=== PATIENT | female | born 1980 | race Caucasian/White ===

== ENCOUNTER → 2016-06-21 | Outpatient (CLI) | payer OTHER ==
[~2016-06-21] MED LIST: ADDE30TA PO; BUPR8SUB SL; BUSP10TA PO; CLON0.1T PO; HYDR10TA65 PO; LAMO100 PO; LORA-373 PO; METR500T10 PO; ORTH0.35 PO; PREN1CHW3 PO; SUBO2MIS SL; TIRO75CA
[2016-06-21 12:00] LABS: BASOPHIL % 0.2 % (0.0-2.0); EOSINOPHIL % 0.1 % (0.0-4.0); HEMATOCRIT 35.9 % (35.0-46.0); HEMO FLAGS DIFF FINAL; LYMPH % 25.2 % (9.0-44.0); LYMPHOCYTE # 1.9 TH/MM3 (1.0-4.8); MEAN CELL VOLUME 83.1 FL (80.0-100.0); MEAN CORPUSCULAR HEMOGLOBIN 28.1 PG (27.0-34.0); MEAN CORPUSCULAR HGB CONC 33.8 % (32.0-36.0); NEUT % 67.5 % (16.0-70.0); PLATELET COUNT 164 TH/MM3 (150-450); RED BLOOD COUNT 4.32 MIL/MM3 (4.00-5.30); WHITE BLOOD COUNT 7.5 TH/MM3 (4.0-11.0)
[2016-06-21 12:18] LABS: BACTERIA, URINE RARE /hpf; BLOOD, URINE NEG (NEG); GLUCOSE,URINE NEG (NEG); KETONE, URINE NEG (NEG); MUCUS URINE FEW /lpf (OCC); NITRITE,URINE NEG (NEG); SQUAMOUS EPITHELIAL CELL URINE 1 /hpf (0-5); URINE COLOR LIGHT-YELLOW (YELLW/STRAW)
== END ==
LOC: CPRE 10:44
PROVIDERS: ATTEND Obstetrics & Gynecology
DX: Z01.812 Encounter for preprocedural laboratory examination (principal); O34.30 Maternal care for cervical incompetence, unspecified trimester
CPT/HCPCS: 36415; 81001; 85025

== ENCOUNTER → 2016-06-23 | Day surgery (SDC) | payer OTHER ==
--- NOTE | 2016-06-22 18:42 | MH ---
cc: HIWOT FOSS DATE OF ADMISSION 06/23/2016 DATE OF PROCEDURE June 23, 2016 PREOPERATIVE DIAGNOSIS Second trimester with a recent LEEP procedure and thinning cervix, scheduled for Bradford cerclage. HISTORY OF PRESENT ILLNESS The patient is a 36-year-old single white female 1, para 0 with LMP 03/29 and EDC 01/03/2017, currently at 12 weeks and 2/7 days. Cervical length is less than three. She had a LEEP for MORRIS III in January of 2016. She has opioid use disorder and takes Subutex 4 mg b.i.d. tablet. She has bipolar disorder type 2 and she takes Lamictal 50 mg b.i.d. She has some anxiety and takes BuSpar 10 mg t.i.d. She has advanced maternal age. She has a known endocrinopathy multiple with thyroid, prolactin issues and she is watched carefully by endocrinology. She currently does not drink or use illicit drugs. She does smoke. She works at the [employer] in [place]. Her blood type is O+. Her hemoglobin was 12.5. Her Pap smear shows HPV and atypical cells. She is immune to Sami measles and chickenpox. Her cultures were otherwise negative. Her drug screen was fine. Her thyroid test was normal. Hep C was negative. Her prolactin was 127. PHYSICAL EXAMINATION VITAL SIGNS: She weighs 141 pounds. Her blood pressure is 120/68. Her urine was negative. NECK: She had no thyromegaly. LUNGS: Clear. HEART: Rate and rhythm are regular. ABDOMEN: Benign. She has no hepatosplenomegaly, no CVA tenderness. PELVIC: Cervix is nulliparous. It is somewhat short. It is firm. It measures less than 3 cm. On ultrasound she has a viable . EXTREMITIES: Are unremarkable. IMPRESSION Second trimester with a history of a recent LEEP procedure at extreme risk for cervical incompetence and second trimester loss. Secondary diagnosis of opioid use disorder. She is on Subutex and compliant and doing well. Her bipolar disorder is being addressed with Lamictal and BuSpar. Risks, benefits, expectations and procedure have been discussed in detail with Lana. She is scheduled for tomorrow morning. She has signed consents. MD KOSTA Lawrence/KK /5:43 PM /6:21 PM
[~2016-06-23] VITALS: Ht 165.1 cm; Wt 63.0 kg
[~2016-06-23] MED LIST changes: -ADDE30TA PO; +CLINDAMYCIN 600 MG/NS 100 ML IV SCH; +CLINDAMYCIN PHOS 600 MG/4 ML VIAL ONE; -CLON0.1T PO; +DO NOT ADM ANY ANTICOAGULANT DRUGS XX PRN; -HYDR10TA65 PO; +IBUPROFEN 600 MG TAB PO ONE; +INSULIN HUMAN REGULAR 1,000 UNITS/10 ML VIAL SQ PRN; +LACTATED RINGER'S 1000 ML IV SCH; -LORA-373 PO; +MEPERIDINE HCL 50 MG/ML VIAL IM ONE; +METOPROLOL TARTRATE 25 MG TAB PO PRN; -METR500T10 PO; +ONDANSETRON HCL 4 MG/2 ML VIAL IV PUSH ONE; +ONDANSETRON HCL 4 MG/2 ML VIAL IV PUSH PRN; -ORTH0.35 PO; +SODIUM CHLORID 0.9% 500 ML IV SCH; +SODIUM CHLORIDE 0.9% INJ 100 ML ONE; -SUBO2MIS SL; -TIRO75CA; +ceFAZolin 2 GM PREMIX 50 ML IV SCH
[2016-06-23 07:17] VITALS: BP 118/81; PULSE 75; RESP 18; TEMP 98.1; O2SAT 99
--- NOTE | 2016-06-23 10:56 | MP ---
cc: FATOUMATA FOSS DATE OF SURGERY: 06/23/2016 DATE OF : 1980 PREOPERATIVE DIAGNOSIS Incompetent cervix due to recent LEEP procedure at 12 weeks. POSTOPERATIVE DIAGNOSIS Incompetent cervix due to recent LEEP procedure at 12 weeks. PROCEDURE Bradford cerclage x2. ANESTHESIA Spinal. SURGEON Dr. Foss. HADOOP ADMINISTRATOR Henrique, MS III FINDINGS Cervix was closed but is already thinned. There was maybe external length of about 2.5 cm. This was enough to allow placement of two cerclages without difficulty. heart tones were heard both before and afterwards. BLOOD LOSS Blood loss was minimal. COUNTS Sponge, instrument, needle count were correct. CONDITION She went to the procedure room stable. PROCEDURE The patient was identified as Lana Beckwith. Her permit was reviewed in the holding area. She was taken to the operating room, given clindamycin, prepped and draped in the usual sterile fashion in dorsal lithotomy position after receiving spinal analgesia. A time-out was performed with all in attendance. Examination under anesthesia was performed. She was prepped as appropriate and then a #1 Prolene with a large CT1 needle was used. The cervix was grasped gently and this was placed from 2 to 10, 10 to 8, 8 to 4 and 4 to 2. A second stitch was then placed from 12 to 9, 9 to 6, 6 to 3, 3 to 12. Both were left with very long square knots. Bleeding was negligibl. Lana talked through the procedure and tolerated it well. She will be followed closely in the office and will be going home when stable. Fatoumata Foss MD PPC/TLL /10:07 AM /10:39 AM
[2016-06-23 13:30] VITALS: BP 118/70; PULSE 70; RESP 16; TEMP 98.5; O2SAT 100
== END | disposition home or self-care (01) ==
LOC: HSDC 06:36
PROVIDERS: ATTEND Obstetrics & Gynecology
DX: O34.31 Maternal care for cervical incompetence, first trimester (principal); Z3A.12 12 weeks gestation of pregnancy
CPT/HCPCS: 00948; 59320; J2405; J7120

== ENCOUNTER → 2016-10-06 | Outpatient (CLI) | payer OTHER ==
[~2016-10-06] MED LIST changes: +BETAMETHASONE SOD PHOS/ACETATE SUSP 30 MG/5 ML VIAL IM SCH; -CLINDAMYCIN 600 MG/NS 100 ML IV SCH; -CLINDAMYCIN PHOS 600 MG/4 ML VIAL ONE; -DO NOT ADM ANY ANTICOAGULANT DRUGS XX PRN; -IBUPROFEN 600 MG TAB PO ONE; -INSULIN HUMAN REGULAR 1,000 UNITS/10 ML VIAL SQ PRN; -LACTATED RINGER'S 1000 ML IV SCH; -MEPERIDINE HCL 50 MG/ML VIAL IM ONE; -METOPROLOL TARTRATE 25 MG TAB PO PRN; -ONDANSETRON HCL 4 MG/2 ML VIAL IV PUSH ONE; -ONDANSETRON HCL 4 MG/2 ML VIAL IV PUSH PRN; -SODIUM CHLORID 0.9% 500 ML IV SCH; -SODIUM CHLORIDE 0.9% INJ 100 ML ONE; -ceFAZolin 2 GM PREMIX 50 ML IV SCH
== END ==
LOC: HOBED 15:21
PROVIDERS: ATTEND Obstetrics & Gynecology
DX: O60.03 Preterm labor without delivery, third trimester (principal)
CPT/HCPCS: 96372; J0702

== ENCOUNTER → 2016-10-07 | Outpatient (CLI) | payer OTHER ==
[~2016-10-07] MED LIST changes: +BETAMETHASONE SOD PHOS/ACETATE SUSP 30 MG/5 ML VIAL IM ONE; -BETAMETHASONE SOD PHOS/ACETATE SUSP 30 MG/5 ML VIAL IM SCH
== END ==
LOC: HOBED 15:01
PROVIDERS: ATTEND Obstetrics & Gynecology
DX: O60.03 Preterm labor without delivery, third trimester (principal); Z3A.00 Weeks of gestation of pregnancy not specified
CPT/HCPCS: 96372; J0702

== ENCOUNTER 2017-01-05 18:08 | Inpatient (IN) | payer OTHER ==
[2017-01-05] VITALS (65 sets, daily range): BP systolic 111–136; BP diastolic 77–91; PULSE 67–95; RESP 16–18; TEMP 98.1–98.7
[~2017-01-05] VITALS: Ht 165.1 cm; Wt 72.3 kg
[~2017-01-05 18:08] MED LIST changes: -BETAMETHASONE SOD PHOS/ACETATE SUSP 30 MG/5 ML VIAL IM ONE
[2017-01-05] MEDS ORDERED: LIDOCAINE HCL 1% 50 ML VIAL INFIL PRN (18:15)
[2017-01-05] MEDS ORDERED: SODIUM CHLORID 0.9% 500 ML INJ 500 ML IV PRN (18:15)
[2017-01-05] MEDS ORDERED: OXYTOCIN 30 UNITS-500ML PREMIX 500 ML IV SCH (18:15)
[2017-01-05] MEDS ORDERED: OXYTOCIN 30 UNITS-500ML PREMIX 500 ML IV ONE (18:15)
[2017-01-05] MEDS ORDERED: LACTATED RINGER'S 1000 ML INJ 1,000 ML IV PRN (18:15)
[2017-01-05] MEDS ORDERED: MINERAL OIL 10 ML VIAL TOPICAL PRN (18:15)
[2017-01-05] MEDS ORDERED: LIDOCAINE HCL 1% 50 ML VIAL I-DERMAL PRN (18:15)
[2017-01-05] MEDS ORDERED: CITRIC ACID-SODIUM CITRATE LIQ 30 ML UDC PO SCH (18:15)
[2017-01-05] MEDS ORDERED: SODIUM CHLOR 0.9% 1000 ML INJ 1,000 ML IV PRN (18:35)
[2017-01-05] MEDS ORDERED: FOLI400T PO (18:56)
[2017-01-05] MEDS ORDERED: LEVO50TA4 PO (18:57)
[2017-01-05 19:42] LABS: AUTOMATED NEUTROPHIL # 6.9 TH/MM3 (1.8-7.7); BASOPHIL % 0.3 % (0.0-2.0); EOSINOPHIL # 0.1 TH/MM3 (0-0.4); EOSINOPHIL % 0.7 % (0.0-4.0); HEMATOCRIT 34.7 % (35.0-46.0); HEMO FLAGS DIFF FINAL; LYMPH % 23.4 % (9.0-44.0); LYMPHOCYTE # 2.4 TH/MM3 (1.0-4.8); MEAN CELL VOLUME 81.8 FL (80.0-100.0); MONO % 7.7 % (0.0-8.0); NEUT % 67.9 % (16.0-70.0); PLATELET COUNT 147 TH/MM3 (150-450); RED BLOOD COUNT 4.25 MIL/MM3 (4.00-5.30); RED CELL DISTRIBUTION WIDTH 12.9 % (11.6-17.2); WHITE BLOOD COUNT 10.1 TH/MM3 (4.0-11.0)
[2017-01-05 19:43] LABS: BACTERIA, URINE RARE /hpf; BLOOD, URINE TRACE (NEG); COMMENT (UR) CULT NOT INDICATED; CULTURE IF INDICATED CULT NOT INDICATED; GLUCOSE,URINE NEG (NEG); KETONE, URINE NEG (NEG); MUCUS URINE FEW /lpf (OCC); NITRITE,URINE NEG (NEG); PH, URINE 6.5 (5.0-8.5); SQUAMOUS EPITHELIAL CELL URINE 1 /hpf (0-5); URINE COLOR YELLOW (YELLW/STRAW)
[2017-01-05] MEDS: LACTATED RINGER'S 1000 ML INJ 1,000 ML IV SCH ×2 (22:17→22:18)
[2017-01-05] MEDS: MISOPROSTOL 25 MCG SUPP VAGINAL PRN (22:18)
[2017-01-06] VITALS (119 sets, daily range): BP systolic 99–138; BP diastolic 55–102; PULSE 42–144; RESP 16–20; TEMP 97.7–100.9
[2017-01-06] MEDS: MISOPROSTOL 25 MCG SUPP VAGINAL PRN (02:09)
[2017-01-06] MEDS: BUPRENORPHINE HCL 8 MG SUBLINGUAL TAB SL SCH ×3 (05:43→19:43)
[2017-01-06] MEDS: LEVOTHYROXINE SODIUM 50 MCG TAB PO SCH (05:44)
[2017-01-06] MEDS: LACTATED RINGER'S 1000 ML INJ 1,000 ML IV SCH ×2 (05:45→13:06)
[2017-01-06] MEDS ORDERED: fentaNYL 2MCG-BUPIV 0.125% INJ 100 ML ONE ×2 (06:22→13:10)
[2017-01-06] MEDS ORDERED: ePHEDrine/NS 25 MG/5 ML SYR ONE (06:22)
--- NOTE | 2017-01-06 08:30 | HHI.HP ---
HPI Chief Complaint 40 2/7 weeks P0 marginal mandel score opioid use disorder depression Date Seen: Jan 05, 2017 Time Seen: 12:00 Travel History International Travel<30 Days: No Contact w/Intl Traveler<30Days: No Known Affected Area: No History of Present Illness HPI 36 yo swf at 40 2/7 first seen at 6 weeks and seen weekly throughout . Hx of LEEPs x2 and then cerclage placed for prophylaxsis at 12 weeks. Removed at 38 weeks. Cervix scarred and only began to dilate this week. Admitted for induction. Hx of opioid addiction and maintained on subutex 8 mg TID. Hx of anxiety and depression treated with buspar and lamictal respectively. Has been compliant with all visits and regular UDS reassuring. No GDM, HTN or PTL. No leaking, bleeding. No UCs good movement Weeks Gestation: 40 Para: 0 : 1 History Past Medical History Narrative Medical hypothyroid history of elevated prolactin Allergies-Medications (Allergen,Severity, Reaction): Coded Allergies: acetaminophen (Unverified Allergy, Severe, nausea, 01/05/17) penicillin G (Unverified Allergy, Severe, nausea gi distress fever blisters, 01/05/17) propoxyphene (Unverified Allergy, Severe, nausea, 01/05/17) Home Meds Reported Medications Levothyroxine (Levothyroxine) 50 Mcg Tab, 50 MCG PO DAILY for Thyroid, #30 TAB 0 Refills 01/05/17 Folic Acid (Folic Acid) 0.4 Mg Tab, 1 MG PO DAILY for Nutritional Supplement, TAB 0 Refills 01/05/17 Lamotrigine (Lamictal) 100 Mg Tab, 50 MG PO BID for Control Seizures, #30 TAB 0 Refills 06/23/16 W/ Vit T4-G1-C60-Chol (Prena1 Chew 1.4 mg) 1 Chw Chw, 1 CHEW PO DAILY 06/21/16 Buspirone (Buspirone) 10 Mg Tab, 10 MG PO BID Y for ANXIETY, TAB 0 Refills 06/21/16 Buprenorphine (Buprenorphine) 8 Mg Subl, 4 MG SL BID, TAB.SL 06/21/16 Physical Exam Vital Signs Date Time Temp Pulse Resp B/P (MAP) Pulse Ox O2 Delivery O2 Flow Rate FiO2 01/06/17 07:00 80 01/06/17 06:57 86 118/71 (87) 01/06/17 06:55 88 01/06/17 06:55 86 01/06/17 06:54 91 120/75 (90) 01/06/17 06:51 98 124/70 (88) 01/06/17 06:50 82 01/06/17 06:50 86 01/06/17 06:48 87 127/75 (92) 01/06/17 06:46 90 134/65 (88) 01/06/17 06:45 86 01/06/17 06:45 88 01/06/17 06:43 110 131/86 (101) 01/06/17 06:41 90 138/80 (99) 01/06/17 06:40 93 01/06/17 06:40 95 127/91 (103) 01/06/17 06:35 86 01/06/17 06:30 75 01/06/17 06:30 74 01/06/17 06:25 70 01/06/17 06:20 74 01/06/17 06:15 137 01/06/17 05:50 78 01/06/17 05:45 144 01/06/17 05:32 98.9 75 18 130/85 (100) 01/06/17 05:30 87 01/06/17 05:10 78 01/06/17 05:05 59 01/06/17 04:45 75 01/06/17 04:40 55 01/06/17 04:25 85 01/06/17 04:15 76 01/06/17 04:10 68 01/06/17 04:05 42 01/06/17 04:00 79 01/06/17 03:55 64 01/06/17 03:50 63 01/06/17 03:47 97.9 18 01/06/17 03:45 60 01/06/17 03:35 72 01/06/17 03:30 65 01/06/17 03:25 74 01/06/17 03:20 69 01/06/17 03:15 75 01/06/17 03:10 72 01/06/17 03:05 72 01/06/17 03:00 60 01/06/17 02:55 61 01/06/17 02:50 70 01/06/17 02:45 64 01/06/17 02:40 70 01/06/17 02:35 60 01/06/17 02:30 64 01/06/17 02:25 71 01/06/17 02:20 71 01/06/17 02:15 69 01/06/17 02:15 16 01/06/17 02:15 98.4 01/06/17 02:10 76 01/06/17 02:08 69 137/85 (102) 01/06/17 02:00 74 01/06/17 01:55 71 01/06/17 01:50 62 01/06/17 01:45 67 01/06/17 01:40 69 01/06/17 01:35 64 01/06/17 01:30 75 01/06/17 01:25 69 01/06/17 01:20 74 01/06/17 01:15 65 01/06/17 01:10 80 01/06/17 01:05 65 01/06/17 01:00 66 01/06/17 00:55 70 01/06/17 00:50 65 01/06/17 00:47 98.3 63 16 124/70 (88) 01/06/17 00:40 78 01/06/17 00:35 87 01/06/17 00:30 73 01/06/17 00:25 84 01/06/17 00:20 79 01/06/17 00:15 69 01/06/17 00:10 79 01/06/17 00:05 72 01/06/17 00:00 71 01/05/17 23:55 80 01/05/17 23:50 81 01/05/17 23:45 71 01/05/17 23:40 81 01/05/17 23:35 79 01/05/17 23:30 84 01/05/17 23:25 80 01/05/17 23:20 83 01/05/17 23:15 78 01/05/17 23:10 81 01/05/17 23:05 80 01/05/17 23:00 73 01/05/17 22:55 90 01/05/17 22:50 88 01/05/17 22:45 84 01/05/17 22:40 84 01/05/17 22:35 74 01/05/17 22:30 83 01/05/17 22:25 93 01/05/17 22:20 80 01/05/17 22:15 87 111/79 (90) 01/05/17 22:15 98.7 16 01/05/17 22:15 80 01/05/17 22:10 83 01/05/17 22:05 91 01/05/17 22:00 80 01/05/17 21:55 83 01/05/17 21:50 94 01/05/17 21:45 95 01/05/17 21:40 84 01/05/17 21:35 83 01/05/17 21:30 89 01/05/17 21:25 84 01/05/17 21:20 71 01/05/17 21:15 71 01/05/17 21:05 84 01/05/17 21:00 79 01/05/17 20:55 75 01/05/17 20:50 81 01/05/17 20:45 71 01/05/17 20:40 86 01/05/17 20:35 79 01/05/17 20:30 81 01/05/17 20:25 77 01/05/17 20:20 79 01/05/17 20:15 82 01/05/17 20:11 98.1 68 18 129/77 (94) 01/05/17 20:10 67 01/05/17 20:05 69 01/05/17 20:00 68 01/05/17 19:55 71 01/05/17 19:50 73 01/05/17 19:45 78 01/05/17 19:40 78 01/05/17 19:35 77 01/05/17 19:30 77 01/05/17 19:25 75 01/05/17 19:20 72 01/05/17 19:15 76 01/05/17 19:10 79 01/05/17 19:05 77 01/05/17 19:00 75 01/05/17 18:55 80 01/05/17 18:50 80 01/05/17 18:45 85 01/05/17 18:30 18 01/05/17 18:30 98.5 01/05/17 18:26 74 136/91 (106) Narrative GENERAL: Well-nourished, well-developed patient. SKIN: Warm and dry. HEAD: Normocephalic and atraumatic. EYES: No scleral icterus. No injection or drainage. ENT: No nasal drainage noted. Mucous membranes pink. Airway patent. NECK: Supple, trachea midline. No JVD. CARDIOVASCULAR: Regular rate and rhythm without murmurs, gallops, or rubs. RESPIRATORY: Breath sounds equal bilaterally. No accessory muscle use. BREASTS: Bilateral exam showed no masses , no retractions, no nipple discharge. ABDOMEN/GI: Abdomen soft, non-tender, bowel sounds present, no rebound, no guarding Gravid to [-] weeks size 38 cm 2/80/-1 pelvis clinically adequate EXTREMITIES: No cyanosis or edema. BACK: Nontender without obvious deformity. No CVA tenderness. NEUROLOGICAL: Awake and alert. Motor and sensory grossly within normal limits. Five out of 5 muscle strength in all muscle groups. Normal speech. Caprini VTE Risk Assessment Caprini VTE Risk Assessment: No/Low Risk (score <= 1) Caprini Risk Assessment Model Point Value = 1 Point Value = 2 Point Value = 3 Point Value = 5 Age 41-60 Minor surgery BMI > 25 kg/m2 Swollen legs Varicose veins or History of unexplained or recurrent spontaneous Oral contraceptives or hormone replacement Sepsis (< 1 month) Serious lung disease, including pneumonia (< 1 month) Abnormal pulmonary function Acute myocardial infarction Congestive heart failure (< 1 month) History of inflammatory bowel disease Medical patient at bed rest Age 61-74 Arthroscopic surgery Major open surgery (> 45 min) Laparoscopic surgery (> 45 min) Malignancy Confined to bed (> 72 hours) Immobilizing plaster cast Central venous access Age >= 75 History of VTE Family history of VTE Factor V Leiden Prothrombin [id number] Lupus anticoagulant Anticardiolipin antibodies Elevated serum homocysteine Heparin-induced thrombocytopenia Other congenital or acquired thrombophilia Stroke (< 1 month) Elective arthroplasty Hip, pelvis, or leg fracture Acute spinal cord injury (< 1 month) Prophylaxis Regimen Total Risk Factor Score Risk Level Prophylaxis Regimen 0-1 Low Early ambulation 2 Moderate Order ONE of the following: *Sequential Compression Device (SCD) *Heparin 5000 units SQ BID 3-4 Higher Order ONE of the following medications: *Heparin 5000 units SQ TID *Enoxaparin/Lovenox 40 mg SQ daily (WT < 150 kg, CrCl > 30 mL/min) *Enoxaparin/Lovenox 30 mg SQ daily (WT < 150 kg, CrCl > 10-29 mL/min) *Enoxaparin/Lovenox 30 mg SQ BID (WT < 150 kg, CrCl > 30 mL/min) AND/OR *Sequential Compression Device (SCD) 5 or more Highest Order ONE of the following medications: *Heparin 5000 units SQ TID (Preferred with Epidurals) *Enoxaparin/Lovenox 40 mg SQ daily (WT < 150 kg, CrCl > 30 mL/min) *Enoxaparin/Lovenox 30 mg SQ daily (WT < 150 kg, CrCl > 10-29 mL/min) *Enoxaparin/Lovenox 30 mg SQ BID (WT < 150 kg, CrCl > 30 mL/min) AND *Sequential Compression Device (SCD) Data Data Orders Orders Admit To Inpatient (01/05/17 ) Code Status (01/05/17 18:15) Vital Signs (Adult) .Per protocol (01/05/17 18:15) Heart (01/05/17 18:15) Amnioinfusion (01/05/17 18:15) Urinary Catheter Management .ONCE (01/05/17 18:15) Lactated Ringer's 1000 Ml Inj (Lr 1000 M (01/05/17 18:15) Lactated Ringer's 1000 Ml Inj (Lr 1000 M (01/05/17 18:15) Sodium Chlorid 0.9% 500 Ml Inj (Ns 500 M (01/05/17 18:15) Sodium Chlor 0.9% 1000 Ml Inj (Ns 1000 M (01/05/17 18:35) Lidocaine 1% Inj (50 Ml) (Xylocaine 1% I (01/05/17 18:15) Citric Acid-Sodium Citrate Liq (Bicitra (01/05/17 18:15) Fentanyl Inj (Fentanyl Inj) (01/05/17 18:15) Fentanyl Inj (Fentanyl Inj) (01/05/17 18:15) Complete Blood Count With Diff (01/05/17 18:15) Hold Clot (01/05/17 18:15) Abo/Rh Blood Type (01/05/17 18:15) Urinalysis - C+S If Indicated (01/05/17 18:15) Resp Oxygen Non Rebreathe Mask (01/05/17 ) ^ Epidural / Intrathecal Infus (01/05/17 18:15) Oxytocin 30 Units-500ml Premix (Pitocin (01/05/17 18:15) Lidocaine 1% Inj (50 Ml) (Xylocaine 1% I (01/05/17 18:15) Light Mineral Oil (Muri-Lube Oil) (01/05/17 18:15) ^ Non Stress Test (01/05/17 18:15) Response To Medication .Post New Med Administration, Reaction (01/05/17 18:15) ^ Discontinue Medication (01/05/17 18:15) Oxytocin 30 Units-500ml Premix (Pitocin (01/05/17 18:15) Inpatient Certification (01/05/17 ) Specimen To Be Collected PRN (01/05/17 18:15) Diet Regular Basic (01/05/17 Dinner) Misoprostol Supp (Cytotec Supp) (01/05/17 22:30) Lamotrigine (Lamictal) (01/06/17 09:00) Levothyroxine (Synthroid) (01/06/17 06:00) Buprenorphine (Buprenorphine) (01/06/17 06:00) Buspirone (Buspar) (01/06/17 09:00) Fentanyl 2mcg-Bupiv 0.125% Inj (Fentanyl (01/06/17 06:22) Ephedrine/Ns 25 Mg/5 Ml Syr (Ephedrine/N (01/06/17 06:22) Labs Laboratory Tests Test 01/05/17 19:25 White Blood Count 10.1 Red Blood Count 4.25 Hemoglobin 11.5 Hematocrit 34.7 Mean Corpuscular Volume 81.8 Mean Corpuscular Hemoglobin 27.0 Mean Corpuscular Hemoglobin Concent 33.0 Red Cell Distribution Width 12.9 Platelet Count 147 Mean Platelet Volume 10.3 Neutrophils (%) (Auto) 67.9 Lymphocytes (%) (Auto) 23.4 Monocytes (%) (Auto) 7.7 Eosinophils (%) (Auto) 0.7 Basophils (%) (Auto) 0.3 Neutrophils # (Auto) 6.9 Lymphocytes # (Auto) 2.4 Monocytes # (Auto) 0.8 Eosinophils # (Auto) 0.1 Basophils # (Auto) 0.0 CBC Comment DIFF FINAL Differential Comment Urine Color YELLOW Urine Turbidity CLEAR Urine pH 6.5 Urine Specific [place] 1.011 Urine Protein NEG Urine Glucose (UA) NEG Urine Ketones NEG Urine Occult Blood TRACE Urine Nitrite NEG Urine Bilirubin NEG Urine Urobilinogen LESS THAN 2.0 Urine Leukocyte Esterase LARGE Urine RBC 1 Urine WBC 5 Urine Squamous Epithelial Cells 1 Urine Amorphous Sediment RARE Urine Bacteria RARE Urine Mucus FEW Microscopic Urinalysis Comment CULT NOT INDICATED Assessment/Plan Assessment and Plan admitted at 6 pm on 01/05 for arom but decision to do cytotec also since still firm continue medications anticipate social issues with coming storm are problematic. Fatoumata Marshall MD Jan 06, 2017 08:30
--- NOTE | 2017-01-06 08:38 | PD.LABORPN ---
Subjective Subjective comfortable with epidural no complaints Objective Vital Signs Vital Signs Date Time Temp Pulse Resp B/P (MAP) Pulse Ox O2 Delivery O2 Flow Rate FiO2 01/06/17 07:00 80 01/06/17 06:57 86 118/71 (87) 01/06/17 06:55 88 01/06/17 06:55 86 01/06/17 06:54 91 120/75 (90) 01/06/17 06:51 98 124/70 (88) 01/06/17 06:50 82 01/06/17 06:50 86 01/06/17 06:48 87 127/75 (92) 01/06/17 06:46 90 134/65 (88) 01/06/17 06:45 86 01/06/17 06:45 88 01/06/17 06:43 110 131/86 (101) 01/06/17 06:41 90 138/80 (99) 01/06/17 06:40 93 01/06/17 06:40 95 127/91 (103) 01/06/17 06:35 86 01/06/17 06:30 75 01/06/17 06:30 74 01/06/17 06:25 70 01/06/17 06:20 74 01/06/17 06:15 137 01/06/17 05:50 78 01/06/17 05:45 144 01/06/17 05:32 98.9 75 18 130/85 (100) 01/06/17 05:30 87 01/06/17 05:10 78 01/06/17 05:05 59 01/06/17 04:45 75 01/06/17 04:40 55 01/06/17 04:25 85 01/06/17 04:15 76 01/06/17 04:10 68 01/06/17 04:05 42 01/06/17 04:00 79 01/06/17 03:55 64 01/06/17 03:50 63 01/06/17 03:47 97.9 18 01/06/17 03:45 60 01/06/17 03:35 72 01/06/17 03:30 65 01/06/17 03:25 74 01/06/17 03:20 69 01/06/17 03:15 75 01/06/17 03:10 72 01/06/17 03:05 72 01/06/17 03:00 60 01/06/17 02:55 61 01/06/17 02:50 70 01/06/17 02:45 64 01/06/17 02:40 70 01/06/17 02:35 60 01/06/17 02:30 64 01/06/17 02:25 71 01/06/17 02:20 71 01/06/17 02:15 69 01/06/17 02:15 16 01/06/17 02:15 98.4 01/06/17 02:10 76 01/06/17 02:08 69 137/85 (102) 01/06/17 02:00 74 01/06/17 01:55 71 01/06/17 01:50 62 01/06/17 01:45 67 01/06/17 01:40 69 01/06/17 01:35 64 01/06/17 01:30 75 01/06/17 01:25 69 01/06/17 01:20 74 01/06/17 01:15 65 01/06/17 01:10 80 01/06/17 01:05 65 01/06/17 01:00 66 01/06/17 00:55 70 01/06/17 00:50 65 01/06/17 00:47 98.3 63 16 124/70 (88) 01/06/17 00:40 78 01/06/17 00:35 87 Objective 3-4/80 /-2 clear fluid some decels but good BTBV and accels Weeks Gestation: 40 Gest Age Assessed Date: Jan 06, 2017 Gest Age Assessed Time: 08:31 Pt started active labor?: Yes Active labor start date: Jan 06, 2017 Active labor start time: 08:31 Medical induction of labor?: Yes Medical induction start date: Jan 05, 2017 Medical induction start time: 18:00 Artificial rupture of membrane: Yes Artificial ROM date: Jan 05, 2017 Artifical ROM time: 18:00 Assessment/Plan Assessment and Plan augment as needed (IUPC in place) anticipate Fatoumata Latham MD Jan 06, 2017 08:38
[2017-01-06] MEDS: busPIRone HCL 10 MG TAB PO SCH (09:23)
[2017-01-06] MEDS: lamoTRIgine 100 MG TAB PO SCH ×2 (09:23→21:40)
[2017-01-06] MEDS ORDERED: LIDOCAINE HCL 1% PF 5 ML AMPULE ONE (15:19)
--- NOTE | 2017-01-06 15:56 | PD.OB.DELI ---
Weeks gestation: 40 Gest age assessed date: Jan 06, 2017 Gest age assessed time: 08:31 Pt started active labor?: Yes Active labor start date: Jan 06, 2017 Active labor start time: 08:31 Medical induction of labor?: Yes Medical induction start date: Jan 05, 2017 Medical induction start time: 18:00 Artificial rupture of membrane: Yes Artificial ROM date: Jan 05, 2017 Artifical ROM time: 18:00 Anesthesia: Epidural Episiotomy: None Vaginal Delivery: Vacuum Presentation: Occiput anterior Nuchal Cord: None Delayed cord clamping (45 sec): No Infant: Male Delivery date: Jan 06, 2017 Delivery time: 15:40 One Minute : 8 Five Minute : 9 Placenta: Spontaneous delivery, Intact, 3 vessel cord Laceration: Vaginal laceration, 1 deg Repair: Chromic interrupted (3.0 chromic ) Estimated blood loss: 250cc Additional Information Delivery supervised by Shana Edwards MD, R3 Jan 06, 2017 15:56
[2017-01-06 15:58] LABS: BLOOD GAS BASE EXCESS -3.1 mmol/L (-2-2); BLOOD GAS O2 HGB SATURATION 29 % (90-100); CORD BLOOD GAS HCO3 23 mmol/L (21-29); CORD BLOOD GAS PCO2 56 mmHG (34-78); CORD BLOOD GAS PH 7.24 (7.14-7.42); CORD BLOOD GAS PO2 19 mmHG (3.0-40.0)
[2017-01-06 15:59] LABS: DRAW SITE CORD BLOOD; STAT NO
[2017-01-06] MEDS ORDERED: ZOLPIDEM TARTRATE 5 MG TAB PO PRN (16:00)
[2017-01-06] MEDS ORDERED: BENZOCAINE 20% TOPICAL SPRAY 60 ML CAN TOPICAL PRN (16:00)
[2017-01-06] MEDS ORDERED: DIPHTH/TETANUS/ACEL PERTUSSIS (BOOSTER) 0.5 ML VIAL/PFS IM ONE (16:00)
[2017-01-06] MEDS ORDERED: DOCUSATE SODIUM 50 MG/SENNA 8.6 MG TAB PO PRN (16:00)
[2017-01-06] MEDS ORDERED: ALUMINUM/MAGNESIUM/SIMETH 30 ML CUP PO PRN (16:00)
[2017-01-06] MEDS ORDERED: MEASLES, MUMPS, RUBELLA VACCINE 0.5 ML VIAL SQ ONE (16:00)
[2017-01-06] MEDS ORDERED: SODIUM CHLORIDE 0.9% FLUSH 10 ML FLUSH IV FLUSH PRN (16:00)
[2017-01-06] MEDS ORDERED: ONDANSETRON ODT 4 MG TAB PO PRN (16:00)
[2017-01-06] MEDS ORDERED: ACETAMINOPHEN 325 MG TAB PO PRN (16:00)
[2017-01-06] MEDS ORDERED: OXYTOCIN 30 UNITS-500ML PREMIX 500 ML IV SCH (16:00)
[2017-01-06] MEDS ORDERED: KETOROLAC TROMETHAMINE 60 MG/2 ML (IM) VIAL IM PRN (16:15)
[2017-01-06] MEDS: IBUPROFEN 600 MG TAB PO PRN (16:50)
[2017-01-06] MEDS: WITCH HAZEL 50%/GLYCERIN 12.5% 40 PAD JAR TOPICAL PRN (19:43)
[2017-01-06] MEDS ORDERED: SODIUM CHLORIDE 0.9% FLUSH 10 ML FLUSH IV FLUSH SCH (21:00)
[2017-01-07] MEDS: IBUPROFEN 600 MG TAB PO PRN ×4 (00:03→22:03)
[2017-01-07] MEDS: LEVOTHYROXINE SODIUM 50 MCG TAB PO SCH ×2 (05:51→05:55)
[2017-01-07] MEDS: BUPRENORPHINE HCL 8 MG SUBLINGUAL TAB SL SCH ×3 (05:52→18:24)
[2017-01-07 08:03] VITALS: BP 89/61; PULSE 64; RESP 20; TEMP 97.6
[2017-01-07] MEDS: lamoTRIgine 100 MG TAB PO SCH ×2 (09:07→22:02)
[2017-01-07] MEDS: busPIRone HCL 10 MG TAB PO SCH (09:08)
--- NOTE | 2017-01-07 09:17 | HHI.OB ---
Subjective Post Day: 1 Remarks Doing well No signs of VIANEY in son at this time. perineum sore Objective Vitals/I&O Vital Signs Date Time Temp Pulse Resp B/P (MAP) Pulse Ox O2 Delivery O2 Flow Rate FiO2 01/07/17 08:03 97.6 64 20 89/61 (70) 01/06/17 19:47 98.4 01/06/17 19:47 87 16 110/75 (87) 01/06/17 16:50 20 01/06/17 16:49 89 123/77 (92) 01/06/17 16:35 20 01/06/17 16:30 89 131/83 (99) 01/06/17 16:17 20 01/06/17 16:15 93 119/102 (108) 01/06/17 16:05 100.9 20 01/06/17 16:00 108 113/87 (96) 01/06/17 15:52 101 121/82 (95) 01/06/17 15:50 20 01/06/17 15:30 80 135/82 (99) 01/06/17 15:15 100.3 20 01/06/17 15:00 81 124/82 (96) 01/06/17 14:30 90 111/74 (86) 01/06/17 14:00 75 129/87 (101) 01/06/17 13:42 20 01/06/17 13:30 77 120/81 (94) 01/06/17 13:10 18 01/06/17 13:08 20 01/06/17 13:00 83 123/86 (98) 01/06/17 12:30 75 118/78 (91) 01/06/17 12:00 77 119/79 (92) 01/06/17 11:49 20 01/06/17 11:38 20 01/06/17 11:30 76 116/76 (89) 01/06/17 11:08 20 01/06/17 11:00 70 110/77 (88) 01/06/17 10:31 81 100/59 (73) 01/06/17 10:15 20 01/06/17 10:08 98.8 01/06/17 10:00 77 114/77 (89) 01/06/17 09:42 20 01/06/17 09:30 89 110/75 (87) Objective Remarks GENERAL: Well-nourished, well-developed patient. CARDIOVASCULAR: Regular rate and rhythm without murmurs, gallops, or rubs. RESPIRATORY: Breath sounds equal bilaterally. No accessory muscle use. ABDOMEN/GI: Abdomen soft, non-tender. Fundus: Firm, non-tender at umbilicus. GENITOURINARY: Light to moderate bleeding. EXTREMITIES: No cyanosis or edema, non-tender, without signs of DVT. Medications and IVs Current Medications Medications (Trade) Dose Ordered Sig/Lydia Route Start Time Stop Time Status Last Admin (Xylocaine 1% Inj (50 ml)) 0.1 ml UNSCH X1 PRN I-DERMAL 01/05/17 18:15 01/08/17 18:14 (Bicitra Liq) 30 ml AUTOMOTIVE FLEET SUPERVISOR PO 01/05/17 18:15 01/09/17 18:14 (Xylocaine 1% Inj (50 ml)) 10 ml UNSCH X1 PRN INFIL 01/05/17 18:15 01/07/17 18:14 (Buprenorphine) 8 mg TID@0600,1200,1800 SL 01/06/17 06:00 01/07/17 05:52 (Buspar) 10 mg DAILY PO 01/06/17 09:00 01/07/17 09:08 (LaMICtal) 100 mg BID PO 01/06/17 09:00 01/07/17 09:07 (Synthroid) 50 mcg DAILY@0600 PO 01/06/17 06:00 (NS Flush) 2 ml BID IV FLUSH 01/06/17 21:00 (NS Flush) 2 ml UNSCH PRN IV FLUSH 01/06/17 16:00 (Motrin) 600 mg Q6H PRN PO 01/06/17 16:00 01/07/17 05:52 (Americaine 20% Top Spr) 1 spray Q4H PRN TOPICAL 01/06/17 16:00 01/06/17 19:43 (Tucks Pads) 1 applic QID PRN TOPICAL 01/06/17 16:00 01/06/17 19:43 (Catalina-Colace) 2 tab Q12H PRN PO 01/06/17 16:00 (Ambien) 5 mg HS PRN PO 9/8/17 16:00 (Mag-Al Plus Susp Liq) 15 ml Q8H PRN PO 01/06/17 16:00 (Zofran Odt) 4 mg Q6H PRN PO 01/06/17 16:00 (Toradol Inj) 30 mg Q6H PRN IM 01/06/17 16:15 01/07/17 16:14 Assessment/Plan Assessment and Plan unremarkable PPD 1 On subutex TID and buspar -- nursing per mima infant well at this time. Fatoumata Marshall MD Jan 07, 2017 09:17
[2017-01-07 19:10] VITALS: BP 147/84; PULSE 57; RESP 16; TEMP 98
[2017-01-07 20:00] VITALS: BP 119/77; PULSE 68; RESP 16; TEMP 98
[2017-01-08] MEDS: WITCH HAZEL 50%/GLYCERIN 12.5% 40 PAD JAR TOPICAL PRN (02:30)
[2017-01-08] MEDS: LEVOTHYROXINE SODIUM 50 MCG TAB PO SCH (05:11)
[2017-01-08] MEDS: IBUPROFEN 600 MG TAB PO PRN (06:40)
[2017-01-08] MEDS: BUPRENORPHINE HCL 8 MG SUBLINGUAL TAB SL SCH (06:40)
--- NOTE | 2017-01-08 08:25 | HHI.OB ---
Subjective Post Day: 2 Remarks Moving slowly with cramping attempting to breast and bottle feed likely to show VIANEY in the next 12 hours. Objective Vitals/I&O Vital Signs Date Time Temp Pulse Resp B/P (MAP) Pulse Ox O2 Delivery O2 Flow Rate FiO2 01/07/17 20:00 98.0 68 16 01/07/17 20:00 119/77 (91) 01/07/17 19:10 98.0 57 16 01/07/17 19:10 147/84 (105) Objective Remarks GENERAL: Well-nourished, well-developed patient. CARDIOVASCULAR: Regular rate and rhythm without murmurs, gallops, or rubs. RESPIRATORY: Breath sounds equal bilaterally. No accessory muscle use. ABDOMEN/GI: Abdomen soft, non-tender. Fundus: Firm, non-tender at umbilicus. GENITOURINARY: Light to moderate bleeding. EXTREMITIES: No cyanosis or edema, non-tender, without signs of DVT. Medications and IVs Current Medications Medications (Trade) Dose Ordered Sig/Lydia Route Start Time Stop Time Status Last Admin (Xylocaine 1% Inj (50 ml)) 0.1 ml UNSCH X1 PRN I-DERMAL 01/05/17 18:15 01/08/17 18:14 (Bicitra Liq) 30 ml MOLD WASHER PO 01/05/17 18:15 01/09/17 18:14 (Buprenorphine) 8 mg TID@0600,1200,1800 SL 01/06/17 06:00 01/08/17 06:40 (Buspar) 10 mg DAILY PO 01/06/17 09:00 01/07/17 09:08 (LaMICtal) 100 mg BID PO 01/06/17 09:00 01/07/17 22:02 (Synthroid) 50 mcg DAILY@0600 PO 01/06/17 06:00 01/08/17 05:11 (NS Flush) 2 ml BID IV FLUSH 01/06/17 21:00 (NS Flush) 2 ml UNSCH PRN IV FLUSH 01/06/17 16:00 (Motrin) 600 mg Q6H PRN PO 01/06/17 16:00 01/08/17 06:40 (Americaine 20% Top Spr) 1 spray Q4H PRN TOPICAL 01/06/17 16:00 01/06/17 19:43 (Tucks Pads) 1 applic QID PRN TOPICAL 01/06/17 16:00 01/08/17 02:30 (Catalina-Colace) 2 tab Q12H PRN PO 01/06/17 16:00 (Ambien) 5 mg HS PRN PO 01/06/17 16:00 (Mag-Al Plus Susp Liq) 15 ml Q8H PRN PO 01/06/17 16:00 (Zofran Odt) 4 mg Q6H PRN PO 01/06/17 16:00 Assessment/Plan Assessment and Plan PPD 2 working on nursing partner worried about failure to thrive due to past experience very anxious about leaving with pending lock down Fatoumata Marshall MD Jan 08, 2017 08:24
[2017-01-08 08:35] VITALS: BP_SYST 100; BP_SYST 121; BP_DIAS 68; BP_DIAS 73; PULSE 63; PULSE 81; RESP 18; TEMP 97.9; TEMP 98
[2017-01-08] MEDS: lamoTRIgine 100 MG TAB PO SCH (09:08)
[2017-01-08] MEDS: busPIRone HCL 10 MG TAB PO SCH (09:08)
[2017-01-14 09:04] LABS: BATH SALTS (MDPV) UR NEG (NEG); ECSTASY (MDMA) UR NEG (NEG); GABAPENTIN UR NEG (NEG); HEROIN (6-ACETYLMORPHINE) UR NEG (NEG); HYDROMORPHONE U NEG (NEG); K2 SPICE UR NEG (NEG); OBMETHADONE UR NEG (NEG); PHENCYCLIDINE URINE NEG (NEG)
== END 2017-01-08 11:53 | disposition home or self-care (01) | DRG 775 ==
LOC: H2EA 18:08 → H1EA 01-06 18:00
PROVIDERS: ADMIT Obstetrics & Gynecology; ATTEND Obstetrics & Gynecology
PROC: 10D07Z6 Extraction of Products of Conception, Vacuum, Via Natural or Artificial Opening (ICD-10-PCS; principal; 2017-01-05)
PROC: 10907ZC Drainage of Amniotic Fluid, Therapeutic from Products of Conception, Via Natural or Artificial Opening (ICD-10-PCS; 2017-01-05)
PROC: 0HQ9XZZ Repair Perineum Skin, External Approach (ICD-10-PCS; 2017-01-05)
DX: O71.4 Obstetric high vaginal laceration alone (principal); O99.324 Drug use complicating childbirth; Z37.0 Single live birth; O99.284 Endocrine, nutritional and metabolic diseases complicating childbirth; E03.9 Hypothyroidism, unspecified; F11.90 Opioid use, unspecified, uncomplicated; Z3A.40 40 weeks gestation of pregnancy; O99.344 Other mental disorders complicating childbirth; F32.9 Major depressive disorder, single episode, unspecified; O09.529 Supervision of elderly multigravida, unspecified trimester
CPT/HCPCS: 59025; 80307; 81001; 82805; 85025; 86900; 86901; 90715; G0481; J2590; J7120